=== PATIENT | female | born 1945 | race Caucasian/White ===

== ENCOUNTER 2022-01-14 11:18 | Outpatient (CLI) | payer MEDICARE, SELFPAY ==
--- NOTE | ~2022-01-14 | XR_ITS ---
EXAMINATION: XR chest 2V DATE: 01/14/2022 11:35 INDICATION: Shortness of breath and cough TECHNIQUE: frontal and lateral views of the chest were obtained. COMPARISON: Chest radiograph dated 10/04/2014 FINDINGS: The lungs remain clear with no focal airspace opacities, pulmonary edema, pleural effusion or pneumot horax. The cardiomediastinal silhouette is normal. Mild thoracic kyphosis with mild spondylosis. Chol ecystectomy clips in upper abdomen. IMPRESSION: 1. No acute cardiopulmonary disease. Reviewed, dictated and finalized at location A.
== END 2022-01-14 11:19 | disposition home or self-care (01) ==
LOC: CHSIMG 11:22
PROVIDERS: PCP Internal Medicine; Visit Provider Internal Medicine
DX: R05.9 Cough, unspecified (principal)
CPT/HCPCS: 71046

== ENCOUNTER 2022-11-04 13:32 | Emergency (ER) | payer MEDICARE, SELFPAY ==
--- NOTE | ~2022-11-04 | XR_ITS ---
EXAMINATION: XR wrist LT 2V DATE: 11/04/2022 14:01 INDICATION: Left wrist pain and swelling. Fall. TECHNIQUE: 2 views of left wrist were obtained. COMPARISON: None. FINDINGS: There is a comminuted fracture of distal radius. The main distal fracture fragment demonstr ates one half shaft width posterior displacement, 4 mm radial displacement, impaction, and dorsal ang ulation. There is 37 degrees dorsal tilt of the distal articular surface. Ulnar styloid is intact. Th ere is moderate osteoarthritis of triscaphe joint and mild osteoarthritis of first carpometacarpal yolis int. IMPRESSION: 1. Comminuted fracture of distal radius. Reviewed, dictated and finalized at location A. WRITER ASSEMBLER
--- NOTE | 2022-11-04 13:33 | ED.FALL ---
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 She presents with -- left wrist pain with a dinner fork deformity. No other injuries noted. The patient is on aspirin. The patient is not on any other anticoagulants. MD complaint: fall Onset (ago): minute(s) ( Fell 30 minutes ago.) Fall from: standing Fall witnessed: yes, by bystander Place fall occurred: other Loss of consciousness: none Prolonged down time: no Symptoms prior to fall: none Context: tripped/slipped Location of injury - extremities: Left: forearm Associated symptoms (after fall): denies Related Data Home Medications Medication Instructions Recorded Confirmed aspirin 81 mg tablet,delayed 81 mg PO DAILY 07/24/20 03/11/22 release pravastatin 20 mg tablet 20 mg PO DAILY 07/24/20 03/11/22 pantoprazole 40 mg tablet,delayed 40 mg PO QAM 07/31/20 03/11/22 release escitalopram oxalate 5 mg tablet 5 mg PO DAILY 01/22/21 03/11/22 Allergies Allergy/AdvReac Type Severity Reaction Status Date / Time sulfur dioxide Allergy Unknown Unknown Verified 08/19/22 09:09 Review of Systems Review of Systems: All systems reviewed & are unremarkable except as noted in HPI and below Constitutional: Constitutional: Reports as per HPI and Reports no additional constitutional complaints Eyes: Eyes: Reports as per HPI and Reports no additional eye complaints ENT: Reports system reviewed and no additional complaints, except as documented and Reports as per HPI Cardiovascular: Cardiovascular: Reports as per HPI and Reports no additional cardiovascular complaints Respiratory: Respiratory: Reports as per HPI and Reports no additional respiratory complaints Gastrointestinal: Gastrointestinal: Reports as per HPI and Reports no additional gastrointestinal complaints Genitourinary: Genitourinary: Reports no additional female genitourinary complaints and Reports as per HPI Musculoskeletal: Musculoskeletal: Reports no additional musculoskeletal complaints and Reports as per HPI Comments: Left wrist pain with deformity Integumentary/Breasts: Skin/Breast: Reports system reviewed and no additional complaints, except as docu and Reports as per HPI Neurologic: Reports system reviewed and no additional complaints, except as documented and Reports as per HPI Psychiatric: Psychiatric: Reports no additional psychiatric complaints and Reports as per HPI Endocrine: Endocrine: Reports no additional endocrine complaints and Reports as per HPI Hematologic/Lymphatic: Hematologic/Lymphatic: Reports no additional hematologic/lymphatic complaints and Reports as per HPI Allergic/Immunologic: Allergic/Immunologic: Reports no additional allergic/immunologic complaints and Reports as per HPI PMFSH Past Medical History Medical History Acid reflux Heart aneurysm History of broken leg History of vaginal delivery Hyperlipidemia Surgical History Surgical History History of cholecystectomy Family History Family History Sibling Diabetes mellitus Family history of hypercholesterolemia Hypertension Family history of lung cancer Heart disease Father Heart disease Other Family history of malignant neoplasm of breast Family history of malignant neoplasm of esophagus Social History Social History Smoking status: Never smoker Alcohol intake: nev
[2022-11-04] MEDS: ONDANSETRON HCL ODT 4 MG TABLET PO (14:15)
[2022-11-04] MEDS: MORPHINE SULFATE (*CRX) 2 MG/ML INJ (14:15)
[2022-11-04 15:03] VITALS: BP 131/69; PULSE 85; RESP 18; TEMP 36.9; O2SAT 96
== END 2022-11-04 15:30 | disposition home or self-care (01) ==
PROVIDERS: Emergency Provider Internal Medicine Critical Care Medicine; PCP Internal Medicine
DX: S52.502A Unspecified fracture of the lower end of left radius, initial encounter for closed fracture (principal); W18.39XA Other fall on same level, initial encounter; Y92.512 Supermarket, store or market as the place of occurrence of the external cause
CPT/HCPCS: 29125; 73100; 96372; 99284; A9270; J2270

== ENCOUNTER 2022-12-01 14:47 | Outpatient (RCR) | payer MEDICARE, SELFPAY ==
--- NOTE | 2022-12-02 10:58 | BUOTOPEVAL ---
Assessment and note entered by Camilla Camejo OT Evaluation Information Assessment Status Evaluation Diagnosis Other closed intra-articular fracture of distal end of L radius Onset October 2022 Subjective Information The patient reports 0/10 pain for majority of the time with pain getting to highest point at 5/10 pain during movement. The patient states her pain is at the posterior wrist and some discomfort at the incision site at volar forearm. The patient reports that she wears her brace at all times unless she is showering or sitting and watching TV . The patient stated that her doctor does not want her lifting with L UE. Reported Pain Level Pain Score 0: Self Report Assessment OT Clinical Summary The patient is a 77 year old female who was referred to outpatient OT due to radius fracture from a fall. The patient previously demonstrated WNL wrist AROM, strength, sensation, digit ROM, and no swelling with no signs of pain. The patient now demonstrates significantly decreased AROM, decreased sensation in thumb and index finger, and swelling of L digits and hand affecting the patient's ability to perform self care tasks and homemaking tasks to prior level of independence. The patient scored a 70.5% on the QuickDASH Questionnaire demonstrating inability to perform opening jars, carry a shopping bag and moderate difficulty with cutting up food. The patient's current level of function now affects the patient' s ability to perform everyday tasks resulting in decreased independence, the patient requires skilled OT to address these deficits and return to independence. Plan of Care Interventions Therapeutic Exercise,Manual Therapy,Neuro Re- education,Therapeutic Activities,Hot Pack/Cold Pack,Electrical Stimulation,Sensory Integrative Techn,Self-Care/Home Management,Prosthetic Training,Ultrasound OT Services Indicated Yes Treatment Frequency and 2x/week for 10 visist. Duration These treatments will address the objective and functional deficits as defined above. The patient will be advanced safely and appropriately in order for the patient to progress towards his/her prior level of function. Additional exercises will be introduced and as well as a comprehensive home exercise program upon discharge, if needed, ?to ensure carryover of functional gains achieved in the clinic. This treatment plan has been reviewed and agreement upon by the patient.
--- NOTE | 2022-12-28 11:09 | BUOTOPEVAL ---
Assessment and note entered by Idalmis Simmons, OT Evaluation Information Assessment Status Progress Diagnosis Other closed intra-articular fracture of distal end of L radius Onset October 2022 Subjective Information Patient reports the following: she feels that she is doing much better overall. Her L index and thumb continue to be numb. Her L wrist orthosis was removed from the doctor last week and she has been using her L hand. Pain has been manageable however if she moves her L wrist a certain way she will feel some pain. Patient is back to cooking and cleaning more. 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 Patient goes back to the doctor on the 20 of January for her final visit. Reported Pain Level Pain Score 0: Self Report Pain Score 0: Self Report Pain Score 0: Self Report Pain Score 0: Self Report Pain Score 0: Self Report Pain Score 1: Self Report Pain Score 0: Self Report Pain Score 0: Self Report Pain Score 0: Self Report Additional Pain Score Comments Pt. has no c/o pain. Additional Pain Score Comments Pt. has no c/o pain. Additional Pain Score Comments Pt. reports soreness on lateral side of wrist, but no pain in neutral. Additional Pain Score Comments Pt. has no c/o pain. Assessment OT Clinical Summary Patient is a 77 year old female who has been seen for 8 outpatient OT sessions post L distal radius fracture and remains appropriate for ongoing services. Patient has made significant progress in edema/scar management, ROM and strength. She has met all AROM goals and edema goal at this time and is progressing with her ability to perform ADLs and IADLs. Altered sensation in the L thumb and index finger as well as decreased L division leader and pinch strength continue to limit her full potential therefore would benefit from continuation of skilled OT services to facilitate these skills. Plan of Care Interventions Therapeutic Exercise,Manual Therapy,Therapeutic Activities,Hot Pack/Cold Pack,Electrical Stimulation,Ultrasound OT Services Indicated
== END 2023-03-01 23:59 | disposition home or self-care (01) ==
LOC: CHSOT 14:47
PROVIDERS: PCP Internal Medicine
DX: S52.572D Other intraarticular fracture of lower end of left radius, subsequent encounter for closed fracture with routine healing (principal)
CPT/HCPCS: 97110; 97140; 97165; 97530

== ENCOUNTER 2023-11-05 13:44 | Outpatient (CLI) | payer MEDICARE, SELFPAY ==
--- NOTE | ~2023-11-05 | DEXA_ITS ---
Bone Density Report Name: TERRANCE HINES Age: 78 Sex: Female Ethnicity: White Date of : 1945 Indication: postmenopausal; screening for osteoporosis; height loss; prior fracture; Referring Provider: Stepan White Study: Bone densitometry was performed. Exam Date: November 05, 2023 Accession number: [id number] Bone Density: Region BMD T-score Z-score Classification AP Spine(L1-L4) 0.867 -1.6 1.0 Osteopenia Femoral Neck (Left) 0.661 -1.7 0.6 Osteopenia Total Hip (Left) 0.862 -0.7 1.4 Normal Femoral Neck (Right) 0.660 -1.7 0.6 Osteopenia Total Hip (Right) 0.892 -0.4 1.6 Normal Femoral Neck Mean 0.661 -1.7 0.6 Osteopenia Total Hip Mean 0.877 -0.5 1.5 Normal World Health Organization criteria for BMD impression classify patients as: Normal (T-score at or above -1.0), Osteopenia (T-score between -1.0 and -2.5), or Osteoporosis (T-score at or below -2.5). 10-year Fracture Risk(1): Major Osteoporotic Fracture 20% Hip Fracture 4.5% Reported Risk Factors: [place] (), Neck BMD=0.660, BMI=25.4, previous fracture (1) FRAX(R) Version 3.08. Fracture probability calculated for an untreated patient. Fracture probability may be lower if the patient has received treatment. Clinical Information Provided by Patient: Has had a low trauma fracture Has used the following medications: Vitamin D, multi Patient maximum height was 64 Menopause Age: 49 No regular weight bearing exercise Does not regularly consume dairy products Drinks caffeinated beverages Onset of menses at age 11 Number of children 3 Impression: The patient has low bone mass, based on the Left Femoral Neck T-score. The patient has risk factors, including: previous fracture. Discussion: BONE DENSITY IS LOW AT ONE OR MORE SKELETAL SITES. This patient's lowest T-score is low at one or more skeletal sites. It meets the World Health Organization's (WHO) criteria for ?low bone mass? (T-score between -1.0 and -2.5). The patient's 10-year risk of fracture as calculated by FRAX is less than the threshold where pharmacological therapy is recommended by the National Osteoporosis Foundation (NOF). However, all treatment decisions require clinical judgment and consideration of individual patient factors, including patient preferences, comorbidities, previous drug use, risk factors not captured in the FRAX model (e.g., frailty, falls, vitamin D deficiency, increased bone turnover, interval significant decline in bone density) and possible under or overestimation of fracture risk by FRAX. The patient should follow a healthful lifestyle (good nutrition with adequate calcium and vitamin D, and appropriate weight-bearing exercise). Follow-Up: Consider repeating this study in 2 to 3 years to reassess this patien
== END 2023-11-05 13:45 | disposition home or self-care (01) ==
LOC: CHSIMG 13:44
PROVIDERS: PCP Internal Medicine; Visit Provider Internal Medicine
DX: Z78.0 Asymptomatic menopausal state (principal); M85.89 Other specified disorders of bone density and structure, multiple sites
CPT/HCPCS: 77080

== ENCOUNTER 2024-08-25 12:44 | Outpatient (CLI) | payer MEDICARE, SELFPAY ==
--- NOTE | ~2024-08-25 | XR_ITS ---
XR chest 2V Ordering provider: Stepan White MD History: 78 years Female with . COUGH . Comparison: January 14, 2022 FINDINGS: MEDIASTINUM: The cardiac silhouette is not enlarged. LUNGS: No infiltrates, effusions or pneumothorax. Emphysematous changes of the lungs. OTHER: No free air under the diaphragm. Kyphosis of the spine. IMPRESSION: No acute cardiopulmonary pathology. Reviewed, dictated and finalized at location A. NING SOLUTIONS SPECIALIST
[2024-08-25 13:06] LABS: Hematocrit 37.3 % (35.0-42.0); Hemoglobin 12.3 g/dL (11.7-13.8); Mean Corpuscular Hemoglobin 26.7 pg (27.0-31.0); Mean Corpuscular Volume 81.1 fL (78.0-102.0); Mean Platelet Volume 8.6 fl (9.2-11.8); Platelet Count Result 257 K/mm3 (150-420); Red Cell Distribution Width 13.4 % (11.6-14.4); White Blood Count 5.8 K/mm3 (4.8-10.8)
[2024-08-25 13:33] LABS: Alanine Aminotransferase 23 U/L (14-59); Albumin Level 3.5 g/dL (3.4-5.0); Alkaline Phosphatase 87 U/L (46-116); Anion Gap 9 mmol/L (4-12); Aspartate Amino Transferase 18 U/L (15-37); Bilirubin,Total 0.2 mg/dL (0.00-1.00); Blood Urea Nitrogen 5 mg/dL (7-18); Calcium 8.8 mg/dL (8.5-10.1); Carbon Dioxide 29 mmol/L (21-32); Chloride 103 mmol/L (98-108); Cholesterol 174 mg/dL (0-200); Estimated Glomerular Filt Rate > 60; Glucose 105 mg/dL (70-99); HDL Direct 72 mg/dL (40-60); LDL Cholesterol Calculated 71 mg/dL (<130); Osmolality Calculated 289 mOsm/kg (285-295); Potassium 3.4 mmol/L (3.5-5.1); Sodium 141 mmol/L (136-145); Triglycerides 155 mg/dL (0-150)
[2024-08-25 13:34] LABS: CRP < 0.5 mg/dL (0.0-0.9)
== END 2024-08-25 12:45 | disposition home or self-care (01) ==
LOC: CHSLAB 12:46
PROVIDERS: PCP Internal Medicine; Visit Provider Internal Medicine
DX: R05.9 Cough, unspecified (principal); E78.5 Hyperlipidemia, unspecified
CPT/HCPCS: 36415; 71046; 80053; 80061; 85027; 86140

== ENCOUNTER 2025-06-13 09:07 | Outpatient (CLI) | payer MEDICARE, SELFPAY ==
[2025-06-13 09:21] LABS: Hematocrit 39.8 % (35.0-42.0); Hemoglobin 12.6 g/dL (11.7-13.8); Mean Corpuscular HGB Conc 31.7 g/dL (32-36); Mean Corpuscular Hemoglobin 26.9 pg (27.0-31.0); Mean Corpuscular Volume 84.9 fL (78.0-102.0); Platelet Count Result 256 K/mm3 (150-420); Red Blood Count 4.69 M/mm3 (4.20-5.40); White Blood Count 7.1 K/mm3 (4.8-10.8)
[2025-06-13 09:22] LABS: Add Urine Microscopic? YES; Appearance Urine Clear (Clear); Glucose Urine UA Negative (Negative); Leukocyte Esterase Ur 3+ (Negative); Nitrate Urine Positive (Negative); Specific Grav Ur <= 1.005 (1.010-1.020)
--- OUTSIDE RECORDS SUMMARY | 2025-06-13 09:52 | XMS_ITS | Clinical Summary ---
Author Organization [facility] Address [address] [place] [id number] Care Team Providers Care Safety Clothing And Equipment Developer Name Role Phone Stepan White MD Primary Care Provider [phone] Allergies No known active allergies Medications erythromycin (ILOTYCIN) ophthalmic ointment 3 Active escitalopram (LEXAPRO) 5 mg tablet 3 Active HYDROcodone-bev taminophen (NORCO) 5-325 mg per tablet [address] (PROTONIX) 40 mg EC tablet 3 Active pilocarpine (SALAGEN) 5 mg tablet 3 Active pravastatin (PRAVACHOL) 20 mg tablet 3 Active vit C,M-Wi-hzmmb-patrick tein-zeaxan 250-90-40-1 mg capsule Take by mouth Active aspirin 81 mg enteric coated tablet Take 81 mg by mouth daily Active peg 400-propylene glycol (SYSTANE) 0.4-0.3 % ophthalmic solution Administer 1 drop into both eyes as needed Active acetaminophen-c odeine (TYLENOL with CODEINE #3) 300-30 mg per tablet Take 1-2 tablets by mouth every 6 (six) hours as needed for pain 50 tablet 3 Active ascorbic acid (ascorbic acid with salvador hips) 500 mg tablet,chewable Take 1 tablet/chew tab (500 mg total) by mouth daily 60 tablet/chew tab 3 Active acetaminophen (TYLENOL) 500 mg tablet Take 500 mg by mouth every 6 (six) hours as needed for pain Active Active Problems Problem Noted Date Diagnosed Date Closed fracture of left distal radius 11/06/2022 Intra-articular fracture of distal end of left radius with volar angulation 11/06/2022 Overview (11/06/2022): Added automatically from request for surgery [id number] Surgical History Surgery Date Site/Laterality Comments TIBIA FRACTURE SURGERY 09/27/1989 - 09/26/1990 Left hardware later removed CHOLECYSTECTOMY WRIST FRACTURE SURGERY Right ORIF DISTAL RADIUS FRACTURE 11/12/2022 Left LT. WRIST ORIF Medical History Medical History Date Comments GERD (gastroesophageal reflux disease) High cholesterol Dry mouth Social History Tobacco Use Types Packs/Day Years Used Date Smoking Tobacco: Never Smokeless Tobacco: Never Tobacco Cessation:Counseling Given: Not Answered AUDIT-C Answer Date Recorded Q1: How often do you have a drink containing alc ohol? 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 Gender Identity Not on file Sexual Orientation Not on file Obstetrics History Last Filed Vital Signs Vital Sign Reading Time Taken Comments Blood Pressure 145/90 11/12/2022 1:00 PM ASSOCIATE FINANCIAL PLANNER Pulse 81 11/12/2022 1:00 PM ASSOCIATE FINANCIAL PLANNER Temperature 36.3 C (97.4 F) 11/12/2022 12:20 PM ASSOCIATE FINANCIAL PLANNER Respiratory Rate 16 11/12/2022 1:00 PM ASSOCIATE FINANCIAL PLANNER Oxygen Saturation 94% 11/12/2022 1:00 PM ASSOCIATE FINANCIAL PLANNER Inhaled Oxygen Concentration - - Weight 61.8 kg (136 lb 3.2 oz) 11/12/2022 8:42 A M ASSOCIATE FINANCIAL PLANNER Height 160 cm (5' 3) 11/12/2022 8:42 AM ASSOCIATE FINANCIAL PLANNER Body Mass Index 24.13 11/12/2022 8:42 AM ASSOCIATE FINANCIAL PLANNER Plan of Treatment Health Maintenance Due Date Last Done Comments Depression Screening 1945 Fall Risk Assessment 1945 Osteoporosis Screening-Bone Density Scan 1945 DTaP/Tdap/Td Vaccine (1 - Tdap) 1955 Hepatitis B Screening 1962 Zoster Vaccine (1 of 2) 1994 Well Visit 65+ 2009 Covid-19 Vaccine (2024-2 6 season) 2025 08/11/2022, 07/22/2021, 11/19/2020, Additional history exists Influenza Vaccine (#1) 2025 2, 07/18/2021, 07/05/2020, Additional history exists Pneumococcal vaccine 65+ Completed 022, 06/27/2018, 10/03/2014 Medical Devices Implanted Type Area Procurement Analyst Device Identifier Shelf Expiration Date Model / Serial / Lot [employer] Screw Kreulock Compression Titanium 2.4x16mm [id number] - [id number] Implanted:Qty: 2 on 11/12/2022 by Sai Pierce MD at [facility] Left: Wrist [employer] AR-8724VCL- 16 / / [employer] 3 Hole Anatomic Graft Window Radius Left Wrist Volar Narrow [id number] - [id number] Implanted:Qty: 1 on 11/12/2022 by Sai Pierce MD at [facility] Left: Wrist [employer] AR-8916VNL- 03 / / [employer] Screw Kreulock Compression Titanium 2.4x18mm [id number] - [id number] Implanted:Qty: 2 on 11/12/2022 by Sai Pierce MD at [facility] Left: Wrist [employer] AR-8724VCL- 18 / / [employer] Low Profile Screws 3.5mm 12mm Self Drill Solid Midfoot Cortical T [id number]-8935-12 - [id number] Implanted:Qty: 1 on 11/12/2022 by Sai Pierce MD at [facility] Left: Wrist [employer] AR-8935-12 / / [employer] Screw Kreulock Compression Titanium 3.5x14mm [id number] - [id number] Implanted:Qty: 2 on 11/12/2022 by Sai Pierce MD at [facility] Left: Wrist [employer] AR-8935CL-1 2 / / Explanted Type Area Procurement Analyst Device Identifier Shelf Expiration Date Model / Serial / Lot [employer] Screw Kreulock Compression Titanium 3.5x14mm [id number] - [id number] Explanted:Qty: 1 on 11/12/2022 by Sai Pierce MD at [facility] Left: Wrist [employer] AR-8935CL-1 4 / / Insurance Care Teams Safety Clothing And Equipment Developer Relationship Specialty Start Date End Date Stepan White MD PCP - General Internal Medicine 11/06/22
[2025-06-13 09:54] LABS: Alanine Aminotransferase 18 U/L (6-35); Albumin Level 4.4 g/dL (3.5-5.1); Alkaline Phosphatase 70 U/L (38-126); Anion Gap 10 mmol/L (4-12); Aspartate Amino Transferase 32 U/L (14-36); Bilirubin,Total 0.5 mg/dL (0.2-1.3); Blood Urea Nitrogen 8 mg/dL (7-17); Calcium 9.7 mg/dL (8.4-10.2); Carbon Dioxide 29 mmol/L (22-30); Chloride 104 mmol/L (98-107); Cholesterol 206 mg/dL (0-200); Estimated Glomerular Filt Rate > 60; Glucose 92 mg/dL (65-110); HDL Direct 74 mg/dL; Osmolality Calculated 294 mOsm/kg (285-295); Potassium 4.6 mmol/L (3.4-5.0); Sodium 143 mmol/L (137-145); Total Protein 9.2 g/dL (6.3-8.2); Triglycerides 190 mg/dL (<150)
[2025-06-13 10:24] LABS: Thyroid Stimulating Hormone 1.920 uIU/mL (0.465-4.680)
== END 2025-06-13 09:08 | disposition home or self-care (01) ==
LOC: CHSLAB 09:09
PROVIDERS: PCP Internal Medicine; Visit Provider Internal Medicine
DX: E78.5 Hyperlipidemia, unspecified (principal)
CPT/HCPCS: 36415; 80053; 80061; 81001; 84443; 85027

== ENCOUNTER 2025-06-15 08:40 | Outpatient (CLI) | payer MEDICARE, SELFPAY ==
--- OUTSIDE RECORDS SUMMARY | 2025-06-15 08:47 | XMS_ITS | Clinical Summary ---
Author Organization [facility] Address [address] [place] [id number] Care Team Providers Care Shrimp Picker Name Role Phone Stepan White MD Primary Care Provider [phone] Allergies No known active allergies Medications erythromycin (ILOTYCIN) ophthalmic ointment 3 Active escitalopram (LEXAPRO) 5 mg tablet 3 Active HYDROcodone-bev taminophen (NORCO) 5-325 mg per tablet [address] (PROTONIX) 40 mg EC tablet 3 Active pilocarpine (SALAGEN) 5 mg tablet 3 Active pravastatin (PRAVACHOL) 20 mg tablet 3 Active vit C,Y-Lp-unuqb-patrick tein-zeaxan 250-90-40-1 mg capsule Take by mouth [...] (11/06/2022): Added automatically from request for surgery [id number] Surgical History Surgery Date Site/Laterality Comments TIBIA [...] on file Legal Sex Female 5:26 PM 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 Gender Identity Not on file Sexual Orientation Not on file Obstetrics History Last Filed Vital Signs Vital Sign Reading Time Taken Comments Blood Pressure 145/90 11/12/2022 1:00 PM 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 PREPARER Pulse 81 11/12/2022 1:00 PM 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 PREPARER Temperature 36.3 C (97.4 F) 11/12/2022 12:20 PM 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 PREPARER Respiratory Rate 16 11/12/2022 1:00 PM 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 PREPARER Oxygen Saturation 94% 11/12/2022 1:00 PM 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 PREPARER Inhaled Oxygen Concentration - - Weight 61.8 kg (136 lb 3.2 oz) 11/12/2022 8:42 A M 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 PREPARER Height 160 cm (5' 3) 11/12/2022 8:42 AM 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 PREPARER Body Mass Index 24.13 11/12/2022 8:42 AM 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 PREPARER Plan of Treatment Health Maintenance Due Date [...] 06/27/2018, 10/03/2014 Medical Devices Implanted Type Area Ip Technology Transactions Attorney Device Identifier Shelf Expiration Date Model / Serial / Lot [employer] Screw Kreulock Compression Titanium 2.4x16mm [id number] - [id number] Implanted:Qty: 2 on 11/12/2022 by Sai Pierce MD at [facility] Left: Wrist [employer] AR-8724VCL- 16 / / [employer] 3 Hole Anatomic Graft Window Radius Left Wrist Volar Narrow [id number] - [id number] Implanted:Qty: 1 on 11/12/2022 by Sai Pierce MD at [facility] Left: Wrist [employer] AR-8916VNL- 03 / / [employer] Screw Kreulock Compression Titanium 2.4x18mm [id number] - [id number] Implanted:Qty: 2 on 11/12/2022 by Sai Pierce MD at [facility] Left: Wrist [employer] AR-8724VCL- 18 / / [employer] Low Profile Screws 3.5mm 12mm Self Drill Solid Midfoot Cortical T [id number]-8935-12 - [id number] Implanted:Qty: 1 on 11/12/2022 by Sai Pierce MD at [facility] Left: Wrist [employer] AR-8935-12 / / [employer] Screw Kreulock Compression Titanium 3.5x14mm [id number] - [id number] Implanted:Qty: 2 on 11/12/2022 by Sai Pirece MD at [facility] Left: Wrist [employer] AR-8935CL-1 2 / / Explanted Type Area Ip Technology Transactions Attorney Device Identifier Shelf Expiration Date Model / Serial / Lot [employer] Screw Kreulock Compression Titanium 3.5x14mm [id number] - [id number] Explanted:Qty: 1 on 11/12/2022 by Sai Pierce MD at [facility] Left: Wrist [employer] AR-8935CL-1 4 / / Insurance Care Teams Shrimp Picker Relationship Specialty Start Date End Date Stepan White MD PCP - General Internal Medicine 11/06/22
[2025-06-15 09:17] LABS: Add Urine Microscopic? YES; Appearance Urine Clear (Clear); Glucose Urine UA Negative (Negative); Leukocyte Esterase Ur 3+ (Negative); Nitrate Urine Negative (Negative); Specific Grav Ur <= 1.005 (1.010-1.020)
== END 2025-06-15 08:41 | disposition home or self-care (01) ==
LOC: CHSLAB 08:45
PROVIDERS: PCP Internal Medicine; Visit Provider Internal Medicine
DX: N39.0 Urinary tract infection, site not specified (principal)
CPT/HCPCS: 81001; 87086; 87186